=== PATIENT | male | born 1985 | race Caucasian/White ===

== ENCOUNTER 2017-01-12 15:57 | Outpatient (CLI) | payer MEDICAID ==
--- NOTE | 2017-01-13 09:23 | XRAY Report ---
RIGHT RIBS: 01/12/2017 CLINICAL INDICATION: Chest wall pain. FINDINGS: Oblique views of the right ribs are obtained, with a marker at the site of maximal tendern ess. There is no evidence of a displaced rib fracture. No pneumothorax is seen. IMPRESSION: NORMAL RIGHT RIBS. JOB #: [id number] EXT JOB #:[id number]
--- NOTE | 2017-01-13 09:24 | XRAY Report ---
TWO-VIEW CHEST: 01/12/2017 CLINICAL INDICATION: Chest wall pain. FINDINGS: Frontal and lateral views of the chest demonstrate a normal cardiac silhouette. The lungs are clear. No effusion or pneumothorax is present. IMPRESSION: NORMAL CHEST. JOB #: [id number] EXT JOB #:[id number]
== END 2017-01-12 15:58 | disposition home or self-care (01) ==
LOC: DI 15:57
PROVIDERS: ATTEND Internal Medicine
DX: R07.89 Other chest pain (principal)
CPT/HCPCS: 71020

== ENCOUNTER 2018-10-18 11:57 | Emergency (ER) | payer MEDICAID ==
[2018-10-18 12:13] VITALS: BP 167/74
--- NOTE | 2018-10-18 12:22 | ED Physician Documentation ---
History of Present Illness - Stated complaint Stated Complaint: FACE/HEAD SWELLING - Chief complaint Chief Complaint: General - History obtained from History obtained from: Patient - Additonal information Additional information: 5 days ago work he was on his back all day working with [employer]. Overnight and through the next day he developed pain that felt like a bruise from the right occiput radiating to the right forehead above the ear and is hard to lay on that side. He developed some swelling on that side of the head and the forehead. There are no visual complaints or diplopia. He denies weakness, numbness, tingling in the arms or legs. No overt fatigue but he feels tired because he is having trouble sleeping because of this pain. Review of Systems Constitutional: denies: Fever, Chills Eyes: denies: Loss of vision, Decreased vision, Photophobia Ears: reports: Ear pain. denies: Loss of hearing Nose: denies: Rhinorrhea / runny nose, Congestion Throat: denies: Sore throat Respiratory: denies: Cough PD PAST MEDICAL HISTORY - Present Medications Home Medications: Ambulatory Orders Medication Instructions Recorded Confirmed Acyclovir 800 mg PO 5XD #50 tablet 10/18/18 Hydrocodone/Acetaminophen 1 - 2 each PO Q6H PRN #14 tablet 10/18/18 [Hydrocodon-Acetaminophen 5-325] predniSONE [Deltasone] 20 mg PO [id number] #21 tab 10/18/18 - Allergies Allergies/Adverse Reactions: Allergies Allergy/AdvReac Type Severity Reaction Status Date / Time Sulfa (Sulfonamide Allergy Hives Verified 10/18/18 12:08 Antibiotics) PD ED PE NORMAL - Vitals Vital signs reviewed: Yes - General General: Alert and oriented X 3, No acute distress - HEENT HEENT: PERRL, EOMI, Ears normal, Pharynx benign - Neck Neck: Supple, no meningeal sign, No bony TTP - Derm Derm: Other (Vesicular lesions across the top of the forehead across the midline but not far across the midline, mostly on the right side. No overt swelling.) - Neuro Neuro: Alert and oriented X 3, Normal speech - Psych Psych: Normal mood, Normal affect Results - Vitals Vitals: Vital Signs - 24 hr 10/18/18 12:08 Temperature 36.8 C Heart Rate 74 Respiratory 16 Rate Blood Pressure 167/74 H O2 Saturation 100 Oxygen O2 Source Room air PD MEDICAL DECISION MAKING - ED course ED course: He had some specific diagnoses he would like to consider after looking at the Internet, these include oculative neuralgia. I discussed with him that there was no such thing as an oculative nerve. This looks like either shingles or a contact dermatitis, leaning towards the former, either should be treated with acyclovir and prednisone. Departure - Departure Disposition: Home, Self Care Clinical Impression: Shingles Qualifiers: Herpes zoster complications: without complications Qualified Code(s): B02.9 - Zoster without complications Condition: Good Record reviewed to determine appropriate education?: Yes Instructions: ED Shingles Prescriptions: Acyclovir 800 mg PO 5XD #50 tablet Hydrocodone/Acetaminophen [Hydrocodon-Acetaminophen 5-325] 1 - 2 each PO Q6H PRN #14 tablet PRN Reason: pain predniSONE [Deltasone] 20 mg PO [id number] #21 tab Comments: As discussed this is either shingles (most likely) or contact dermatitis from the drywall (less likely). Both should be treated with the steroids, follow-up with your doctor Tuesday or Tuesday if not better. Your blood pressure was elevated today on check into the emergency department. This does not mean that you have hypertension, it is a common phenomenon to come to the emergency department and have elevated blood pressure. I recommend that you see your primary care physician within the week to have it rechecked when you are feeling better.
== END 2018-10-18 12:28 | disposition home or self-care (01) ==
LOC: ED 11:57
DX: B02.9 Zoster without complications (principal); R03.0 Elevated blood-pressure reading, without diagnosis of hypertension
CPT/HCPCS: 99283

== ENCOUNTER 2020-02-18 12:14 | Emergency (ER) | payer MEDICAID ==
[2020-02-18 12:40] LABS: BASOPHILS # (AUTO) 0.1 10^3/uL (0.0-0.1); BASOPHILS % (AUTO) 0.6 %; EOSINOPHILS # (AUTO) 0.1 10^3/uL (0.0-0.7); EOSINOPHILS % (AUTO) 1.4 %; HGB - HEMOGLOBIN 14.4 g/dL (14.0-18.0); LYMPHOCYTES # (AUTO) 0.7 10^3/uL (1.5-3.5); LYMPHOCYTES % (AUTO) 7.1 %; MEAN CORPUSCULAR HEMOGLOBIN 31.6 pg (27.0-31.0); MEAN CORPUSCULAR HGB CONC 33.9 g/dL (32.0-36.0); MEAN CORPUSCULAR VOLUME 93.4 fL (80.0-94.0); MEAN PLATELET VOLUME 8.3 fL (7.4-11.4); MONOCYTES # (AUTO) 0.8 10^3/uL (0.0-1.0); MONOCYTES % (AUTO) 8.3 %; NEUTROPHILS # (AUTO) 7.6 10^3/uL (1.5-6.6); NEUTROPHILS % (AUTO) 82.3 %; PLT - PLATELET COUNT 223 10^3/uL (130-450); RED BLOOD COUNT 4.55 10^6/uL (4.70-6.10); RED CELL DISTRIBUTION WIDTH 12.1 % (12.0-15.0); WHITE BLOOD COUNT 9.3 x10^3/uL (4.8-10.8)
[2020-02-18 12:56] LABS: ALBUMIN 4.7 g/dL (3.2-5.5); ALBUMIN/GLOBULIN RATIO 1.9 (1.0-2.2); BILIRUBIN,TOTAL 0.8 mg/dL (0.2-1.0); CALCIUM 9.2 mg/dL (8.5-10.3); CREATININE 0.9 mg/dL (0.6-1.2); TOTAL PROTEIN 7.2 g/dL (6.7-8.2)
[2020-02-18 12:57] LABS: BILIRUBIN,URINE NEGATIVE (NEGATIVE); GLUCOSE, URINE (UA) NEGATIVE (NEGATIVE); KETONES,URINE (UA) 15 mg/dL (NEGATIVE); LEUKOCYTE ESTERASE, URINE NEGATIVE (NEGATIVE); NITRITE,URINE NEGATIVE (NEGATIVE); OCCULT BLOOD,URINE TRACE-INTA (NEGATIVE); PH,URINE 5.5 PH (5.0-7.5); PROTEIN,URINE NEGATIVE (NEGATIVE); UROBILINOGEN,URINE 0.2 (NORMAL) E.U./dL (NORMAL)
[2020-02-18 12:59] LABS: CLARITY,URINE CLOUDY (CLEAR)
[2020-02-18 13:17] LABS: BACTERIA,URINE Rare /HPF (None Seen); RBC,URINE 0-5 /HPF (0-5); SQUAMOUS EPITHELIAL CELL,UR RARE Squamous (<= Few)
[2020-02-18] MEDS ORDERED: ONDANSETRON 4 MG/2 ML VIAL IVP STA (15:43)
[2020-02-18] MEDS ORDERED: SODIUM CHLORIDE 0.9% 1,000 ML IV STA (15:43)
--- NOTE | 2020-02-18 15:47 | ED Physician Documentation ---
History of Present Illness - Stated complaint Stated Complaint: ABD PX - Chief complaint Chief Complaint: Abd Pain - History obtained from History obtained from: Patient - Additonal information Additional information: Patient comes emergency department complaining of left abdominal pain since around 5:00 this morning, plus vomiting and diarrhea. He states he cannot keep anything down. States the pain seems to come and go and when he gets the worst is when he vomits. Patient states he gets a feeling of hot and cold, but has not measured a fever. He states he is otherwise healthy. No urinary c omplaints. No blood in his stools. No cough or shortness of breath. No other complaints at this time. Review of Systems Ten Systems: 10 systems reviewed and negative Constitutional: reports: Reviewed and negative Eyes: reports: Reviewed and negative Ears: reports: Reviewed and negative Nose: reports: Reviewed and negative Throat: reports: Reviewed and negative Cardiac: reports: Reviewed and negative Respiratory: reports: Reviewed and negative GI: reports: Abdominal Pain, Nausea, Vomiting, Diarrhea : reports: Reviewed and negative Skin: reports: Reviewed and negative Musculoskeletal: reports: Reviewed and negative Neurologic: reports: Reviewed and negative Psychiatric: reports: Reviewed and negative Endocrine: reports: Reviewed and negative Immunocompromised: reports: Reviewed and negative PD PAST MEDICAL HISTORY - Past Medical History Past Medical History: Yes Musculoskeletal: Chronic back pain - Past Surgical History Past Surgical History: Yes Ortho: Spine surgery - Present Medications Home Medications: Ambulatory Orders Medication Instructions Recorded Confirmed Acyclovir 800 mg PO 5XD #50 tablet 10/18/18 Hydrocodone/Acetaminophen 1 - 2 each PO Q6H PRN #14 tablet 10/18/18 [Hydrocodon-Acetaminophen 5-325] predniSONE [Deltasone] 20 mg PO [id number] #21 tab 10/18/18 Ondansetron Odt [Zofran] 4 mg TL Q6H PRN #10 tablet 02/18/20 - Allergies Allergies/Adverse Reactions: Allergies Allergy/AdvReac Type Severity Reaction Status Date / Time Sulfa (Sulfonamide Allergy Hives Verified 02/18/20 12:37 Antibiotics) - Social History Does the pt smoke?: No Smoking Status: Never smoker Does the pt drink ETOH?: No Does the pt have substance abuse?: No Substance Use and Type: Marijuana - Immunizations Immunizations are current?: Yes - POLST Patient has POLST: No PD ED PE NORMAL - Vitals Vital signs reviewed: Yes - General General: Alert and oriented X 3, No acute distress - HEENT HEENT: Atraumatic, PERRL, EOMI, Moist mucous membranes - Neck Neck: Supple, no meningeal sign - Cardiac Cardiac: RRR, No murmur - Respiratory Respiratory: No respiratory distress, Clear bilaterally - Abdomen Abdomen: Soft, Non distended, Other (Mild left mid abdominal tenderness) - Derm Derm: Warm and dry - Extremities Extremities: No deformity - Neuro Neuro: Alert and oriented X 3 - Psych Psych: Normal mood, Normal affect Results - Vitals Vitals: Vital Signs - 24 hr 02/18/20 02/18/20 02/18/20 12:37 14:47 15:58 Temperature 36.6 C 36.6 C 36.6 C Heart Rate 92 92 89 Respiratory 18 18 16 Rate Blood Pressure 137/75 H 136/72 H 135/70 H O2 Saturation 98 99 100 Oxygen O2 Source Room air - Labs Labs: Laboratory Tests 02/18/20 02/18/20 02/18/20 12:31 12:31 12:45 WBC 9.3 RBC 4.55 L Hgb 14.4 Hct 42.5 MCV 93.4 MCH 31.6 H MCHC 33.9 RDW 12.1 Plt Count 223 MPV 8.3 Neut # (Auto) 7.6 H Lymph # (Auto) 0.7 L Green # (Auto) 0.8 Eos # (Auto) 0.1 Baso # (Auto) 0.1 Absolute Nucleated RBC 0.00 Nucleated RBC % 0.0 Sodium 139 Potassium 3.9 Chloride 101 Carbon Dioxide 25 Anion Gap 13.0 BUN 9 Creatinine 0.9 Estimated GFR (MDRD) 96 Glucose 103 H Calcium 9.2 Total Bilirubin 0.8 AST 25 ALT 22 Alkaline Phosphatase 55 Total Protein 7.2 Albumin 4.7 Globulin 2.5 Albumin/Globulin Ratio 1.9 Lipase 30 Urine Color YELLOW Urine Clarity CLOUDY Urine pH 5.5 Ur Specific [place] >=1.030 H Urine Protein NEGATIVE Urine Glucose (UA) NEGATIVE Urine Ketones 15 H Urine Occult Blood TRACE-INTA Urine Nitrite NEGATIVE Urine Bilirubin NEGATIVE Urine Urobilinogen 0.2 (NORMAL) Ur Leukocyte Esterase NEGATIVE Urine RBC 0-5 Urine WBC 0-3 Ur Squamous Epith Cells RARE Squamous Urine Bacteria Rare Ur Microscopic Review INDICATED Urine Culture Comments NOT INDICATED - Rads (name of study) CT abd/pelvis Radiology: Final report received, EMP read indepedently, See rad report (diverticulum, no diverticulitis. Possible mild colitis.) PD MEDICAL DECISION MAKING - ED course Complexity details: reviewed results, re-evaluated patient, considered differential, d/w patient ED course: The patient was given IV Zofran and fluids and worked up with labs, which were unremarkable. His CT scan showed findings most likely secondary to his gastroenteritis, but no diverticulitis or other emergent/urgent finding. Familia mccarthy has been advised of the findings. He has been instructed regarding clear liquid diet and advancement of diet as tolerated. Departure - Departure Disposition: Home, Self Care Clinical Impression: Gastroenteritis Condition: Stable Instructions: ED Gastroenteritis Viral Prescriptions: Ondansetron Odt [Zofran] 4 mg TL Q6H PRN #10 tablet PRN Reason: Nausea / Vomiting Comments: Your labs and CT scan look good, overall. There is no evidence of diverticulitis or any other Bacterial infection. There is evidence of a viral gastroenteritis, or the "stomach flu". This will pass on its own, usually within 48 hours of onset of symptoms. You may take the nausea medication prescribed, as needed. Take only small amounts of clear liquids at a time at first. Do not eat any food until you can tolerate clear liquids without vomiting. You may then try simple starches, such as Saltines, Ramen noodles, or white rice. If this is tolerated, you may advance from there.
[2020-02-18] MEDS ORDERED: IOVERSOL 320 100 ML VIAL IVP ONE ×2 (16:03→16:50)
--- NOTE | 2020-02-18 16:54 | CT Report ---
PROCEDURE: Abdomen/Pelvis W INDICATIONS: L abd pain, diverticulitis hx CONTRAST: IV CONTRAST: Optiray 320 ml: 100 PO CONTRAST: *NO PO CONTRAST TECHNIQUE: After the administration of intravenous contrast, 5 mm thick sections acquired from the diaphragms to the symphysis. 5 mm thick coronal and sagittal reformats were acquired. For radiation dose reducti on, the following was used: automated exposure control, adjustment of mA and/or kV according to deana ent size. COMPARISON: None. FINDINGS: Image quality: Excellent. ABDOMEN: Lung bases: Lung bases are clear. Heart size is normal. Solid organs: Liver and spleen are normal in size and enhancement. Gallbladder appears normal. Raza iary system is non dilated. Pancreas enhances normally. No adrenal nodules. Kidneys demonstrate no rmal size and enhancement, without hydronephrosis. Peritoneum and bowel: Mild bowel wall thickening in the descending colon is nonspecific, but may alisa aggie mild colitis. A diverticulum is seen arising from the posterior gastric fundus. Normal appendix No free fluid or air. Nodes and vessels: No retroperitoneal or mesenteric adenopathy by size criteria. Aorta and inferior vena cava are normal in size. Miscellaneous: No ventral hernias. PELVIS: Genitourinary: Bladder wall thickness is normal. Miscellaneous: No inguinal hernias or adenopathy. Bones: No suspicious bony lesions. No vertebral body compression fractures. Minimal degenerative c hanges are seen in the spine. IMPRESSION: 1. Mild bowel wall thickening in the descending colon may be related to underdistention versus mild colitis. 2. Small diverticulum projecting posteriorly from the gastric fundus without associated inflammatory changes. Reviewed by: Jose Mckenzie MD on 02/18/2020 4:52 PM PDT Approved by: Jose Mckenzie MD on 02/18/2020 4:52 PM PDT Station ID: [id number]
[2020-02-18 17:47] VITALS: BP 132/70
== END 2020-02-18 17:46 | disposition home or self-care (01) ==
LOC: ED 12:14
DX: K52.9 Noninfective gastroenteritis and colitis, unspecified (principal)
CPT/HCPCS: 36415; 74177; 80053; 81001; 83690; 85025; 96374; 99284; Q9967; 81003; 87086

== ENCOUNTER 2020-10-30 13:27 | Emergency (ER) | payer MEDICAID, OTHER ==
[2020-10-30 13:37] VITALS: BP 146/93
[2020-10-30] MEDS ORDERED: BACITRACIN ZINC OINT 1 PACKET TOP STA (14:00)
[2020-10-30] MEDS ORDERED: TETANUS/DIPHTHERIA/PERTUSSIS 0.5 ML SYRINGE IM ONE (14:02)
--- NOTE | 2020-10-30 14:03 | ED Physician Documentation ---
PD HPI HEAD INJURY - Stated complaint Stated Complaint: HEAD LAC - Chief complaint Chief Complaint: Laceration - History obtained from History obtained from: Patient - Additional information Additional information: Patient comes emergency department chief complaint of forehead laceration. He states he was using a wrench and that it broke loose from the knot and struck him in the forehead. Patient denies loss of consciousness. He sustained a laceration to his forehead, which his coworkers immediately cleansed with alcohol and hydrogen peroxide. Patient states his last tetanus was 12 years ago he thinks. No other complaints at this time. Review of Systems Ten Systems: 10 systems reviewed and negative Constitutional: reports: Reviewed and negative Eyes: reports: Reviewed and negative Ears: reports: Reviewed and negative Nose: reports: Reviewed and negative Throat: reports: Reviewed and negative Cardiac: reports: Reviewed and negative Respiratory: reports: Reviewed and negative GI: reports: Reviewed and negative : reports: Reviewed and negative Skin: reports: Laceration (s) Musculoskeletal: reports: Reviewed and negative Neurologic: reports: Reviewed and negative Psychiatric: reports: Reviewed and negative Endocrine: reports: Reviewed and negative Immunocompromised: reports: Reviewed and negative PD PAST MEDICAL HISTORY - Past Medical History Past Medical History: Yes Musculoskeletal: Chronic back pain - Past Surgical History Past Surgical History: Yes Ortho: Spine surgery - Present Medications Home Medications: Ambulatory Orders Medication Instructions Recorded Confirmed No Known Home Medications 10/30/20 10/30/20 - Allergies Allergies/Adverse Reactions: Allergies Allergy/AdvReac Type Severity Reaction Status Date / Time Sulfa (Sulfonamide Allergy Hives Verified 10/30/20 13:37 Antibiotics) - Social History Does the pt smoke?: No Smoking Status: Never smoker Does the pt drink ETOH?: No Does the pt have substance abuse?: No - Immunizations Immunizations are current?: Yes - POLST Patient has POLST: No PD ED PE NORMAL - Vitals Vital signs reviewed: Yes - General General: Alert and oriented X 3, No acute distress - HEENT HEENT: PERRL, EOMI, Other (2.5 cm midline laceration in the forehead, linear. No foreign body. Bleeding well controlled. No bony depression or soft tissue swelling. No other injury.) - Neck Neck: Supple, no meningeal sign - Cardiac Cardiac: RRR, No murmur - Respiratory Respiratory: Clear bilaterally - Abdomen Abdomen: Normal bowel sounds, Soft, Non tender, Non distended - Derm Derm: Warm and dry - Extremities Extremities: No deformity - Neuro Neuro: Alert and oriented X 3 - Psych Psych: Normal mood, Normal affect Results - Vitals Vitals: Vital Signs - 24 hr 10/30/20 13:34 Temperature 36.0 C L Heart Rate 79 Respiratory 16 Rate Blood Pressure 146/93 H O2 Saturation 100 Oxygen O2 Source Room air Procedures - Laceration (location) forehead Length in cm: 2.5 Wound type: Linear, Into subcut fat, Clean Neurovascular status: Sensory intact, Motor intact, Vascular intact Tendon involvement: No: Tendon Injury Anesthesia: Lidocaine 1% with epi Wound preparation: Hibiclens, Irrigated copiously NS, To the base. No: FB identified Skin layer closure: Nylon, Interrupted, Size #-0 - enter number (5.0), Sutures - enter # (5) Other: Patient tolerated well, No complications, Neurovascular intact, Dressing applied, Tetanus booster given PD MEDICAL DECISION MAKING - ED course Complexity details: considered differential, d/w patient ED course: Patient's forehead laceration was repaired as above. Tetanus was updated. We have discussed wound care at home, as well as the timeline for wound check and suture removal, which would be expected to be about 5 days from now. We discussed signs of infection and the usual indications for return. Departure - Departure Disposition: 01 Home, Self Care Clinical Impression: Laceration Condition: Stable Instructions: ED Laceration Facial Sutr Tape Comments: Your laceration has been repaired with 5 synthetic sutures today. You should generally keep the wound clean and dry, though you may allow soap and water to run over the wound. Please do not rub, scrub, or immerse the wound until sutures are removed, in order to help prevent infection. You should have your wound rechecked in 5 days at which time sutures will most likely be removed. You may be seen at walk-in clinic, urgent care, or your primary care physician's office to have this done. If you cannot be seen in any of these venues, you may return to the emergency department. If you notice redness or swelling spreading progressively away from the wound, or if your wound splits open and becomes "mushy" or drains pus, you should return immediately for recheck. Your tetanus has been updated today.
== END 2020-10-30 14:34 | disposition home or self-care (01) ==
LOC: ED 13:27
DX: S01.81XA Laceration without foreign body of other part of head, initial encounter (principal); W20.8XXA Other cause of strike by thrown, projected or falling object, initial encounter; Y93.89 Activity, other specified; Y99.0 Civilian activity done for income or pay; Z23 Encounter for immunization
CPT/HCPCS: 12011; 90471; 90715; 99282; 99283; A9270

== ENCOUNTER 2021-01-11 12:46 | Emergency (ER) | payer MEDICAID ==
--- NOTE | 2021-01-11 13:09 | ED Physician Documentation ---
PD HPI BACK PAIN - Stated complaint Stated Complaint: BACK PX - Chief complaint Chief Complaint: Back Pain - History obtained from History obtained from: Patient - History of Present Illness Timing - onset: How many weeks ago (2) Timing - duration: Weeks (2) Timing - details: Gradual onset, Still present Location: Lower, Right Quality: Pain, Spasm, Aching. No: Sharp, Tearing Associated symptoms: Numbness (pain right SI area, not in spine itself. Radiates down back of leg, with some tingling at times. No weakness nor persistent numbness.). No: Fever, Weakness Improves with: No: Rest, Meds Worsened by: Movement, Lifting Contributing factors: Twisting (he did slip on left foot and fell with twist of back, but no impact to back nor gluteal.). No: Trauma Similar symptoms before: Diagnosis (had disc protrusion few years ago and had discectomy with improvement. Had pain in lumbar area at that time. Pain more lateral at SI now.) Recently seen: Not recently seen Review of Systems Constitutional: denies: Fever, Chills Nose: denies: Rhinorrhea / runny nose, Congestion Throat: denies: Sore throat Respiratory: denies: Cough GI: denies: Abdominal Pain, Nausea, Vomiting : denies: Incontinent Skin: denies: Rash, Lesions Musculoskeletal: reports: Back pain. denies: Neck pain Neurologic: denies: Focal weakness, Numbness PD PAST MEDICAL HISTORY - Past Medical History Cardiovascular: None Neuro: None Musculoskeletal: Chronic back pain (prior lumbar pain with sciatica, with disc surgery and improved. Does not hav echronic pain. New onset of acute pain couple weeks ago. ) - Past Surgical History Past Surgical History: Yes Ortho: Spine surgery - Present Medications Home Medications: Ambulatory Orders Medication Instructions Recorded Confirmed HYDROcod/ACETAM 5/325 [[place] 5/325] 1 ea PO Q6H PRN #18 tablet 01/11/21 tiZANidine [Zanaflex] 4 mg PO Q8H PRN #25 tablet 01/11/21 - Allergies Allergies/Adverse Reactions: Allergies Allergy/AdvReac Type Severity Reaction Status Date / Time Sulfa (Sulfonamide Allergy Hives Verified 01/11/21 12:54 Antibiotics) - Social History Does the pt smoke?: No Smoking Status: Never smoker Does the pt drink ETOH?: No Does the pt have substance abuse?: No - Immunizations Immunizations are current?: Yes - POLST Patient has POLST: No PD ED PE NORMAL - Vitals Vital signs reviewed: Yes - General General: Alert and oriented X 3, Well developed/nourished, Other (appears in pain and guarding ROM of the right low back. ) - Abdomen Abdomen: Soft, Non tender - Back Back: No CVA TTP, No spinal TTP, Other (tender right upper SI area and in muscle there. No rash nor redness. ) Results - Vitals Vitals: Vital Signs - 24 hr 01/11/21 01/11/21 12:54 14:02 Temperature 36.5 C 36.9 C Heart Rate 72 73 Respiratory 16 12 Rate Blood Pressure 135/80 H 140/89 H O2 Saturation 99 100 Oxygen O2 Source Room air PD MEDICAL DECISION MAKING - ED course Complexity details: considered differential (not having symptoms to suggest need for acute imaging. Has tender right SI area. I did trigger injection with bupivocaine and Kenalog in that muscle area. ), d/w patient Departure - Departure Disposition: 01 Home, Self Care Clinical Impression: Acute low back pain Qualifiers: Back pain laterality: right Sciatica presence: with sciatica Sciatica laterality: sciatica of right side Qualified Code(s): M54.41 - Lumbago with sciatica, right side Condition: Stable Record reviewed to determine appropriate education?: Yes Instructions: ED Spasm Back No Trauma Prescriptions: HYDROcod/ACETAM 5/325 [[place] 5/325] 1 ea PO Q6H PRN #18 tablet PRN Reason: Pain tiZANidine [Zanaflex] 4 mg PO Q8H PRN #25 tablet PRN Reason: Spasms Comments: Heat and gentle range of motion for the low back. Exercises as you have done in the past with your prior back problems. Physical treatments such as chiropractic or massage are also good. Use anti-inflammatories with continued use of the ibuprofen 2 to 3 tablets 2-3 times a day with food. Add tizanidine muscle relaxant for spasms and stiffness. To that add Tylenol 500 mg 4 times a day. Alternatively you can use hydrocodone with acetaminophen every 6 hours if needed for worse pain. This would be intended short-term as I would expect improvement over the next several days to a week. Follow-up with your primary care if not better in that timeframe. I am prescribing a short course of narcotic pain medication for you. These are potentially dangerous and addictive medications that should be used carefully. These medications may constipate you. Take an upyq-yeu-iydqmau stool softener such as docusate twice daily with plenty of water while taking these medications. If you go 24 hours without a bowel movement, take [id number] MiraLAX, per package instructions. Do not drink or drive while taking these medications. If you received narcotic or sedating medications while in the emergency dep artment do not drive for 24 hours. Store this medication in a safe, secure place and out of reach of children. It is a violation of federal law to give or sell this medication to another person or to use in a manner other than prescribed. The ED will not refill narcotic prescriptions, including prescriptions lost or stolen. You can dispose of unwanted medications at the [facility] office or at several pharmacies such as [facility]. Discharge Date/Time: 01/11/21 14:05
[2021-01-11] MEDS ORDERED: TRIAMCINOLONE 40 MG/ML VIAL IM STA (13:20)
[2021-01-11] MEDS ORDERED: oxyCODONE 5 MG TABLET PO STA (13:20)
[2021-01-11] MEDS ORDERED: methocarbamoL 500 MG TABLET PO STA (13:20)
[2021-01-11] MEDS ORDERED: ACETAMINOPHEN 325 MG TABLET PO STA (13:20)
[2021-01-11 14:03] VITALS: BP 140/89
== END 2021-01-11 14:05 | disposition home or self-care (01) ==
LOC: ED 12:46
DX: M54.41 Lumbago with sciatica, right side (principal)
CPT/HCPCS: 20552; 99283; A9270

== ENCOUNTER 2022-12-31 08:00 | Outpatient (CLI) | payer MEDICAID ==
--- NOTE | 2023-01-01 03:49 | XRAY Report ---
PROCEDURE: Finger(s) RT INDICATIONS: RIGHT FINGER PAIN TECHNIQUE: AP hand, 2 views of the fourth digit acquired. COMPARISON: None. FINDINGS: Bones: No fractures or dislocations. No suspicious bony lesions. Soft tissues: No suspicious soft tissue calcifications or masses. IMPRESSION: No acute bony abnormality. Reviewed by: Chris Recinos MD on 01/01/2023 3:48 AM PDT Approved by: Chris Recinos MD on 01/01/2023 3:48 AM PDT Station ID: [id number]
== END 2022-12-31 23:59 | disposition home or self-care (01) ==
LOC: DI.S 08:00
PROVIDERS: ATTEND Internal Medicine
DX: M79.644 Pain in right finger(s) (principal)

== ENCOUNTER 2023-08-15 08:00 | Outpatient (CLI) | payer MEDICAID ==
--- NOTE | 2023-08-15 14:45 | XRAY Report ---
PROCEDURE: Toe(s) 2+V LT INDICATIONS: CONTUSION OF LESSER TOES OF LEFT FOOT TECHNIQUE: 3 views of the fourth toe(s) acquired. COMPARISON: None. 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 No suspicious bony lesions. Soft tissues: No suspicious soft tissue densities. Moderate soft tissue swelling of the fourth digi t. No radiopaque foreign body. 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 Reviewed by: Mert King MD on 08/15/2023 2:44 PM PDT Approved by: Mert King MD on 08/15/2023 2:44 PM PDT Station ID: [id number]
== END 2023-08-15 23:59 | disposition home or self-care (01) ==
LOC: DI.S 08:00
PROVIDERS: ATTEND Emergency Medicine
DX: S90.122A Contusion of left lesser toe(s) without damage to nail, initial encounter (principal)
CPT/HCPCS: 73660

== ENCOUNTER 2023-10-05 09:16 | Outpatient (CLI) | payer MEDICAID ==
[2023-10-05 21:18] LABS: CHLAMYDIA TRACHOMATIS DNA NEGATIVE (NEGATIVE); NEISSERIA GONORRHOEAE DNA NEGATIVE (NEGATIVE); TRICHOMONAS VAGINALIS DNA NEGATIVE (NEGATIVE)
[2023-10-06 03:10] LABS: HIV SCREEN 4TH GENERATION Non Reactive (Non Reactive)
[2023-10-06 04:09] LABS: HSV 1 IGG TYPE SPEC <0.91 index (0.00-0.90); HSV 2 IGG TYPE SPEC <0.91 index (0.00-0.90)
[2023-10-06 07:10] LABS: HBsAG SCREEN Negative (Negative)
[2023-10-06 08:10] LABS: HEPATITIS B SURFACE AB QUANT <3.5 mIU/mL (Immunity>9.9); RPR Non Reactive (Non Reactive)
[2023-10-06 23:09] LABS: HCV AB Non Reactive (Non Reactive)
== END 2023-10-05 09:17 | disposition home or self-care (01) ==
LOC: LAB.S 09:16
PROVIDERS: ATTEND Emergency Medicine
DX: Z72.51 High risk heterosexual behavior (principal)
CPT/HCPCS: 36415; 86317; 86592; 86695; 86696; 86803; 87340; 87389; 87491; 87591; 87661

== ENCOUNTER 2023-10-17 13:41 | Outpatient (CLI) | payer MEDICAID | END 2023-10-17 13:42 | disposition home or self-care (01) | LOC: LAB.S 13:41 | PROVIDERS: ATTEND Emergency Medicine | DX: L42 Pityriasis rosea (principal) | CPT/HCPCS: 36415; 86592 ==